=== PATIENT | female | born 1970 | race Caucasian/White ===

== ENCOUNTER → 2018-10-01 | Outpatient (CLI) | payer OTHER ==
--- NOTE | 2018-10-01 15:45 | REPMRS ---
Patient History The patient states she had a clinical breast exam in 09/2018. Family history of breast cancer in maternal aunt, breast cancer at age 44 in sister. No Hormone Replacement Therapy 3D TOMOSYNTHESIS WAS PERFORMED. Digital Woman Screen Mammo: October 01, 2018 - Exam #: [id number] Bilateral CC and MLO view(s) were taken. Technologist: Chiara Maurer, Technologist Prior study comparison: March 03, 2013, digital woman screen mammo performed at [facility]. FINDINGS: The breast tissue is heterogeneously dense. This may lower the sensitivity of mammography. There has been no change in the appearance of the mammogram from the prior studies. There is a moderate amount of residual fibroglandular tissue which is fairly symmetric. There is no interval development of dominant mass, areas of architectural distortion, or clustered microcalcification typical of malignancy. Assessment: BI-RADS/ACR category 1 mammogram. Negative Mammogram. Recommendation Routine screening mammogram in 1 year (for women over age 40). This mammogram was interpreted with the aid of an FDA-approved computer-aided dectection system. THE LIFETIME RISK OF BREAST CANCER IS 20%, THEREFORE SUPPLEMENTAL SCREENING MRI OF THE BREASTS IS RECOMMENDED IN 6 MONTHS. Electronically Signed By: Tejinder Kaur MD 10/01/18 [id number]
== END ==
LOC: M WHC 14:39
PROVIDERS: ATTEND Nurse Practitioner Women's Health
DX: Z12.31 Encounter for screening mammogram for malignant neoplasm of breast (principal); Z85.3 Personal history of malignant neoplasm of breast

== ENCOUNTER → 2018-10-01 | Outpatient (REF) | payer OTHER ==
[2018-10-06 14:10] LABS: HPV HYBRID CAPTURE II Negative (Negative)
== END ==
LOC: M SFHCWAGY 14:43
PROVIDERS: ATTEND Nurse Practitioner Women's Health
DX: Z12.4 Encounter for screening for malignant neoplasm of cervix (principal)
CPT/HCPCS: 87624; G0123

== ENCOUNTER → 2020-05-03 | Outpatient (REF) | payer OTHER ==
[2020-05-03 13:52] LABS: FOLATE 12.5 NG/ML
== END ==
LOC: M LAB REF 12:33
PROVIDERS: ATTEND Registered Nurse
DX: R20.2 Paresthesia of skin (principal)

== ENCOUNTER → 2021-04-02 | Outpatient (CLI) | payer OTHER ==
--- NOTE | 2021-04-02 15:08 | REP ---
INDICATION: PAIN. COMPARISON: None TECHNIQUE: AP and frog-lateral views bilateral FINDINGS: The femoral heads are spherical in shape and symmetric in appearance. There is mild bilateral asymmetric hip joint space narrowing without subchondral sclerosis, subchondral cyst formation, buttressing, or marginal osteophyte formation. There is no acute fracture, dislocation, or subluxation. IMPRESSION: Early degenerative changes. <Electronically signed by Antony Rolon > 04/02/21 [id number]
== END ==
LOC: M WUC 14:48
PROVIDERS: ATTEND Registered Nurse
DX: M25.551 Pain in right hip (principal); M25.552 Pain in left hip

== ENCOUNTER → 2021-04-12 | Outpatient (REF) | payer OTHER | LOC: M LAB REF 17:04 | PROVIDERS: ATTEND Physician Assistant | DX: R43.2 Parageusia (principal) ==

== ENCOUNTER → 2021-05-31 | Outpatient (REF) | payer OTHER ==
[2021-05-31 12:55] LABS: FOLATE 15.7 NG/ML
== END ==
LOC: M LAB REF 11:59
PROVIDERS: ATTEND Registered Nurse
DX: R43.2 Parageusia (principal)

== ENCOUNTER → 2021-06-05 | Outpatient (CLI) | payer OTHER | LOC: M WHC 10:34 | PROVIDERS: ATTEND Nurse Practitioner Women's Health | DX: Z53.29 Procedure and treatment not carried out because of patient's decision for other reasons (principal) ==

== ENCOUNTER → 2021-06-05 | Outpatient (REF) | payer OTHER | LOC: M SFHCWAGY 12:54 | PROVIDERS: ATTEND Nurse Practitioner Women's Health | DX: Z12.4 Encounter for screening for malignant neoplasm of cervix (principal) ==

== ENCOUNTER → 2022-04-24 | Outpatient (CLI) | payer OTHER | LOC: M WUC 15:33 | PROVIDERS: ATTEND Registered Nurse | DX: M25.551 Pain in right hip (principal); M25.552 Pain in left hip ==

== ENCOUNTER 2022-06-06 17:32 | Emergency (ER) | payer OTHER ==
[~2022-06-06] VITALS: Ht 177.8 cm; Wt 102.9 kg
[2022-06-06 17:42] VITALS: BP 123/64
[2022-06-06] MEDS ORDERED: TRAZ-252 (17:42)
[2022-06-06] MEDS ORDERED: BUPR-71 (17:42)
[2022-06-06] MEDS ORDERED: ROPI1TAB3 (17:42)
[2022-06-06 18:10] LABS: BASO % 0.5 % (0.0-1.0); EOS # 0.1 10^3/uL (0.0-0.5); HEMATOCRIT 39.1 % (36.0-47.0); HEMOGLOBIN 12.7 g/dl (12.0-15.5); LYMPH # 2.1 10^3/uL (1.5-5.0); MEAN CORPUSCULAR HEMOGLOBIN 30.5 pg (27.0-33.0); MEAN CORPUSCULAR HGB CONC 32.5 g/dl (32.0-36.5); MEAN CORPUSCULAR VOLUME 93.8 fl (80.0-96.0); MONO # 0.6 10^3/uL (0.0-0.8); MONO % 7.9 % (2.0-8.0); NEUTROPHILS # 4.9 10^3/uL (1.5-8.5); NEUTROPHILS % 63.3 % (36.0-66.0); PLATELET COUNT, AUTOMATED 363 10^3/uL (150-450); RED BLOOD COUNT 4.17 10^6/uL (4.00-5.40); WHITE BLOOD COUNT 7.7 10^3/uL (4.0-10.0)
[2022-06-06 18:43] LABS: BLOOD UREA NITROGEN 9 MG/DL (9-23); CALCIUM LEVEL 9.5 MG/DL (8.5-10.1); CARBON DIOXIDE LEVEL 26 MMOL/L (20-31); CHLORIDE LEVEL 103 MMOL/L (98-107); CK-MB VALUE MASS < 1.0 NG/ML (<3.6); CREATININE FOR GFR 0.84 MG/DL (0.55-1.30); GLOMERULAR FILTRATION RATE > 60.0 (>58); GLUCOSE, FASTING 79 MG/DL (60-100); POTASSIUM SERUM 4.1 MMOL/L (3.5-5.1); SODIUM LEVEL 138 MMOL/L (136-145)
[2022-06-06 18:46] LABS: CPK CREATINE PHOSPHOKINASE 91 U/L (34-145); MB/CK RELATIVE INDEX 1.09 (< OR =4)
== END 2022-06-06 21:57 | disposition left against medical advice (07) ==
LOC: M ED 17:32 → EDBD 17:32 → M ED 21:57
DX: Z53.21 Procedure and treatment not carried out due to patient leaving prior to being seen by health care provider (principal)

== ENCOUNTER → 2022-09-10 | Outpatient (CLI) | payer OTHER ==
[~2022-09-10] MED LIST: BUPR-71; ROPI1TAB3; TRAZ-252
== END ==
LOC: M PLAIMG 06:40
PROVIDERS: ATTEND Orthopaedic Surgery
DX: M70.61 Trochanteric bursitis, right hip (principal); M70.62 Trochanteric bursitis, left hip; M76.02 Gluteal tendinitis, left hip; M76.01 Gluteal tendinitis, right hip

== ENCOUNTER → 2022-10-31 | Outpatient (REF) | payer OTHER | LOC: M SFHCWAGY 18:20 | PROVIDERS: ATTEND Obstetrics & Gynecology | DX: Z12.4 Encounter for screening for malignant neoplasm of cervix (principal) | CPT/HCPCS: 87624; G0123 ==

== ENCOUNTER → 2022-11-11 | Outpatient (CLI) | payer OTHER | LOC: M WHC 15:29 | PROVIDERS: ATTEND Nurse Practitioner Family | DX: N83.209 Unspecified ovarian cyst, unspecified side (principal) ==

== ENCOUNTER 2023-02-25 12:10 | Emergency (ER) | payer OTHER ==
[~2023-02-25] VITALS: Ht 177.8 cm; Wt 100.2 kg
[~2023-02-25 12:10] MED LIST changes: -ROPI1TAB3; +ROPI1TAB73
[2023-02-25] MEDS ORDERED: ESCITALOPRAM (13:07)
[2023-02-25] MEDS ORDERED: PHEN-239 (13:07)
[2023-02-25] MEDS ORDERED: SYNT150T (13:07)
[2023-02-25 16:33] LABS: BASO % 0.4 % (0.0-1.0); EOS # 0.2 10^3/uL (0.0-0.5); EOS % 2.1 % (0.0-3.0); HEMATOCRIT 39.5 % (36.0-47.0); HEMOGLOBIN 12.9 g/dl (12.0-15.5); LYMPH # 1.9 10^3/uL (1.5-5.0); LYMPH % 26.4 % (24.0-44.0); MEAN CORPUSCULAR HEMOGLOBIN 29.9 pg (27.0-33.0); MEAN CORPUSCULAR HGB CONC 32.7 g/dl (32.0-36.5); MEAN CORPUSCULAR VOLUME 91.6 fl (80.0-96.0); MONO # 0.5 10^3/uL (0.0-0.8); MONO % 7.2 % (2.0-8.0); NEUTROPHILS # 4.6 10^3/uL (1.5-8.5); NEUTROPHILS % 63.6 % (36.0-66.0); PLATELET COUNT, AUTOMATED 338 10^3/uL (150-450); RED BLOOD COUNT 4.31 10^6/uL (4.00-5.40); WHITE BLOOD COUNT 7.2 10^3/uL (4.0-10.0)
[2023-02-25 16:49] LABS: ERYTHROCYTE SEDIMENTATION RATE 5 mm/hr (0-30)
[2023-02-25 17:13] LABS: CK-MB VALUE MASS < 1.0 NG/ML (<3.6)
[2023-02-25 17:14] LABS: IRON (FE) 42 UG/DL (50-170); PERCENT SATURATION 15.1 % (13.2-45.0); TOTAL IRON BINDING CAPACITY 278 UG/DL (250-425)
[2023-02-25 17:15] LABS: C REACTIVE PROTEIN QUANTITATIV < 0.40 MG/DL (<1.0)
[2023-02-25 17:16] LABS: ALBUMIN 3.9 G/DL (3.2-5.2); ALKALINE PHOSPHATASE 59 U/L (46-116); ALT/SGPT 20 U/L (7.0-40); AST/SGOT 15 U/L (<34); BILIRUBIN,DIRECT < 0.1 MG/DL (<0.4); BILIRUBIN,TOTAL 0.3 MG/DL (0.3-1.2); BLOOD UREA NITROGEN 10 MG/DL (9-23); CALCIUM LEVEL 9.2 MG/DL (8.5-10.1); CARBON DIOXIDE LEVEL 29 MMOL/L (20-31); CHLORIDE LEVEL 108 MMOL/L (98-107); CREATININE FOR GFR 0.85 MG/DL (0.55-1.30); GLOMERULAR FILTRATION RATE > 60.0 (>51); GLUCOSE, FASTING 91 MG/DL (60-100); INR 1.05; MAGNESIUM LEVEL 1.8 MG/DL (1.8-2.4); PARTIAL THROMBOPLASTIN TIME 28.8 SECONDS (24.8-34.2); POTASSIUM SERUM 4.1 MMOL/L (3.5-5.1); PROTHROMBIN TIME 13.4 SECONDS (12.5-14.5); SODIUM LEVEL 141 MMOL/L (136-145); TOTAL PROTEIN 6.9 G/DL (5.7-8.2)
[2023-02-25 17:19] LABS: D-DIMER QUANT < 0.27 ug/mL (<0.5); FOLATE > 24.00 NG/ML (>5.4); FREE T4 1.24 NG/DL (0.89-1.76); VITAMIN B12 LEVEL 414 PG/ML (211-911)
[2023-02-25 17:20] LABS: CPK CREATINE PHOSPHOKINASE 59 U/L (34-145); MB/CK RELATIVE INDEX 1.69 (< OR =4)
[2023-02-25] MEDS ORDERED: MOME17SP NS (18:00)
[2023-02-25 18:19] VITALS: BP 140/76; TEMP 97.6; O2SAT 98
== END 2023-02-25 18:21 | disposition home or self-care (01) ==
LOC: M ED 12:10
DX: D50.9 Iron deficiency anemia, unspecified (principal); J34.89 Other specified disorders of nose and nasal sinuses; E03.9 Hypothyroidism, unspecified; Z79.899 Other long term (current) drug therapy; Z88.0 Allergy status to penicillin

== ENCOUNTER → 2023-10-27 | Outpatient (CLI) | payer OTHER ==
[~2023-10-27] MED LIST changes: +ESCITALOPRAM; +MOME17SP NS; +PHEN-239; +SYNT150T
[2023-10-27 10:38] LABS: BASO # 0.1 10^3/uL (0.0-0.2); BASO % 0.6 % (0.0-1.0); EOS # 0.1 10^3/uL (0.0-0.5); EOS % 1.4 % (0.0-3.0); HEMATOCRIT 39.5 % (36.0-47.0); HEMOGLOBIN 12.8 g/dl (12.0-15.5); LYMPH # 1.7 10^3/uL (1.5-5.0); LYMPH % 19.2 % (24.0-44.0); MEAN CORPUSCULAR HEMOGLOBIN 30.5 pg (27.0-33.0); MEAN CORPUSCULAR HGB CONC 32.4 g/dl (32.0-36.5); MEAN CORPUSCULAR VOLUME 94.3 fl (80.0-96.0); MONO # 0.7 10^3/uL (0.0-0.8); MONO % 7.6 % (2.0-8.0); NEUTROPHILS # 6.4 10^3/uL (1.5-8.5); NEUTROPHILS % 70.6 % (36.0-66.0); PLATELET COUNT, AUTOMATED 323 10^3/uL (150-450); RED BLOOD COUNT 4.19 10^6/uL (4.00-5.40); WHITE BLOOD COUNT 9.1 10^3/uL (4.0-10.0)
[2023-10-27 11:02] LABS: IRON (FE) 122 UG/DL (50-170)
[2023-10-27 11:03] LABS: ALBUMIN 3.5 G/DL (3.2-5.2); ALKALINE PHOSPHATASE 65 U/L (46-116); ALT/SGPT 26 U/L (7.0-40); AST/SGOT 21 U/L (<34); BILIRUBIN,TOTAL 0.4 MG/DL (0.3-1.2); BLOOD UREA NITROGEN 14 MG/DL (9-23); CALCIUM LEVEL 9.1 MG/DL (8.5-10.1); CARBON DIOXIDE LEVEL 30 MMOL/L (20-31); CHLORIDE LEVEL 104 MMOL/L (98-107); CHOLESTEROL LEVEL 175 MG/DL (<200); CHOLESTEROL RISK RATIO 3.53 (<5); CREATININE FOR GFR 0.79 MG/DL (0.55-1.30); GLOMERULAR FILTRATION RATE > 60.0 (>51); GLUCOSE, FASTING 86 MG/DL (60-100); HDL CHOLESTEROL 49.5 MG/DL (>40); LDL CHOLESTEROL 101.7 MG/DL (<100); NON-HDL-C 125.5 MG/DL; POTASSIUM SERUM 3.9 MMOL/L (3.5-5.1); SODIUM LEVEL 138 MMOL/L (136-145); TOTAL PROTEIN 6.3 G/DL (5.7-8.2); TRIGLYCERIDES LEVEL 119 MG/DL (<150)
[2023-10-27 11:06] LABS: CARCINOEMBRYONIC ANTIGEN < 2.0 NG/ML (<2.5); FERRITIN 14.9 NG/ML (7.3-270.7); THYROID STIMULATING HORMONE 6.924 uIU/ML (0.55-4.78)
[2023-10-27 11:07] LABS: FREE T4 0.98 NG/DL (0.89-1.76)
== END ==
LOC: M WUC 08:18
PROVIDERS: ATTEND Registered Nurse
DX: M54.50 Low back pain, unspecified (principal); D50.9 Iron deficiency anemia, unspecified; Z79.899 Other long term (current) drug therapy; Z13.220 Encounter for screening for lipoid disorders

== ENCOUNTER → 2024-05-05 | Outpatient (REF) | payer OTHER ==
[~2024-05-05] MED LIST changes: +BUPR150T12 PO; +FINA1TAB4 PO; +LEXA1TAB2 PO; -ROPI1TAB73; +ROPI1TAB73 PO; +SEMA0.257 SQ; +SYNT175T2 PO; -TRAZ-252; +TRAZ-252 PO
== END ==
LOC: M SFHCWAGY 15:07
PROVIDERS: ATTEND Obstetrics & Gynecology
DX: N93.9 Abnormal uterine and vaginal bleeding, unspecified (principal)

== ENCOUNTER → 2024-05-16 | Outpatient (CLI) | payer OTHER ==
[~2024-05-16] MED LIST changes: +COLA100C5 PO; +IBUP80TA PO; +PERCOCET PO
== END ==
LOC: M EKG 13:00
PROVIDERS: ATTEND Anesthesiology
DX: Z01.818 Encounter for other preprocedural examination (principal)

== ENCOUNTER 2024-05-20 07:02 | Observation (INO) | payer OTHER ==
[2024-05-20] VITALS (8 sets, daily range): BP systolic 95–113; BP diastolic 52–64; TEMP 95.4–99.2; O2SAT 90–100
[~2024-05-20] VITALS: Ht 177.8 cm; Wt 103.9 kg
[~2024-05-20 07:02] MED LIST changes: -COLA100C5 PO; -IBUP80TA PO; -PERCOCET PO
[2024-05-20 08:04] LABS: HEMATOCRIT 44.1 % (36.0-47.0); HEMOGLOBIN 14.4 g/dl (12.0-15.5); MEAN CORPUSCULAR HEMOGLOBIN 30.8 pg (27.0-33.0); MEAN CORPUSCULAR HGB CONC 32.7 g/dl (32.0-36.5); MEAN CORPUSCULAR VOLUME 94.2 fl (80.0-96.0); PLATELET COUNT, AUTOMATED 368 10^3/uL (150-450); RED BLOOD COUNT 4.68 10^6/uL (4.00-5.40); WHITE BLOOD COUNT 10.1 10^3/uL (4.0-10.0)
[2024-05-20] MEDS: ceFAZolin SOD 2 GM in IV 1 EA IV ONE (08:05)
[2024-05-20] MEDS: METHYLENE BLUE 0.5% (5MG/ML) 10 ML AMP (PROVAYBLUE) As Ordered ONE (08:38)
[2024-05-20] MEDS ORDERED: ROCURONIUM BROMIDE 50MG/5ML VIAL As Ordered ONE (08:46)
[2024-05-20] MEDS ORDERED: METOCLOPRAMIDE INJ 10MG/2ML VIAL As Ordered ONE (08:46)
[2024-05-20] MEDS ORDERED: ONDANSETRON 4MG 2ML VIAL As Ordered ONE (08:46)
[2024-05-20] MEDS ORDERED: propofoL 200 MG/20 ML VIAL As Ordered ONE (08:46)
[2024-05-20] MEDS ORDERED: KETOROLAC 60MG 2ML VIAL As Ordered ONE (08:46)
[2024-05-20] MEDS ORDERED: fentaNYL 250 MCG/5 ML INJECTION As Ordered ONE (08:46)
[2024-05-20] MEDS ORDERED: MIDAZOLAM INJ 2MG/2ML VIAL As Ordered ONE (08:46)
[2024-05-20] MEDS ORDERED: SUGAMMADEX SODIUM 500 MG/5 ML VIAL (BRIDION) As Ordered ONE (08:46)
[2024-05-20] MEDS ORDERED: LIDOCAINE 2% 100MG/5ML SDV (FOR ANES.) As Ordered ONE (08:46)
[2024-05-20] MEDS ORDERED: ACETAMINOPHEN 1000MG/100ML IV BAG As Ordered ONE (08:46)
[2024-05-20] MEDS ORDERED: HYDROmorphone HCL 2MG/ML 1ML VIAL As Ordered ONE (08:46)
[2024-05-20] MEDS ORDERED: dexmedeTOMIDine (4MCG/ML)200MCG/50ML BTL (PRECEDEX) As Ordered ONE (09:10)
[2024-05-20] MEDS ORDERED: GLYCOPYRROLATE INJ 0.2 MG/ML 2 ML VIAL As Ordered ONE (10:12)
[2024-05-20] MEDS ORDERED: ePHEDrine SULFATE 25 MG/5 ML(5MG/ML) SYRINGE As Ordered ONE (10:13)
[2024-05-20] MEDS ORDERED: DESFLURANE 240 ML INHALANT As Ordered ONE (10:18)
[2024-05-20] MEDS ORDERED: ONDANSETRON 4MG 2ML VIAL IV PRN ×2 (10:20→10:25)
[2024-05-20] MEDS ORDERED: oxyCODONE 5MG TAB PO PRN (10:20)
[2024-05-20] MEDS ORDERED: MORPHINE 4 MG/ML 1ML VIAL IV PRN (10:30)
[2024-05-20] MEDS ORDERED: IBUP80TA PO (10:32)
[2024-05-20] MEDS ORDERED: COLA100C5 PO (10:32)
[2024-05-20] MEDS ORDERED: PERCOCET PO (10:32)
[2024-05-20] MEDS: fentaNYL 100 MCG/2 ML INJECTION IV PRN (11:07)
[2024-05-20] MEDS: HYDROMORPHONE HCL 0.5 MG/ 0.5 ML SYRINGE IV PRN (11:18)
[2024-05-20] MEDS: LR 1,000 ML IV SCH (12:53)
[2024-05-20] MEDS: KETOROLAC 30 MG/ML 1ML VIAL IV SCH (17:29)
[2024-05-20] MEDS: PERCOCET 5MG/325MG TAB PO PRN (19:15)
[2024-05-20] MEDS: SIMETHICONE 80MG CHEW TAB PO PRN (21:47)
[2024-05-20] MEDS: DOCUSATE SODIUM 100MG CAPSULE PO SCH (21:47)
[2024-05-21 02:00] VITALS: BP 116/66; TEMP 98.9; O2SAT 98
[2024-05-21] MEDS: PERCOCET 5MG/325MG TAB PO PRN (02:00)
[2024-05-21 05:58] VITALS: BP 117/68; TEMP 98.9; O2SAT 98
[2024-05-21 09:44] VITALS: BP 107/57; TEMP 97.7; O2SAT 95
[2024-05-21] MEDS ORDERED: IBUPROFEN 800 MG TAB PO SCH (18:00)
== END 2024-05-21 11:44 | disposition home or self-care (01) ==
LOC: M SDC 07:02 → M RR INP 10:26 → M OBS 11:55
PROVIDERS: ADMIT Obstetrics & Gynecology; ATTEND Obstetrics & Gynecology
DX: N72 Inflammatory disease of cervix uteri (principal); N88.8 Other specified noninflammatory disorders of cervix uteri; D27.1 Benign neoplasm of left ovary; L72.0 Epidermal cyst; N93.9 Abnormal uterine and vaginal bleeding, unspecified; R10.2 Pelvic and perineal pain; Z88.0 Allergy status to penicillin; Z79.899 Other long term (current) drug therapy
CPT/HCPCS: 36415; 58571; 58662; 81025; 85027; 86850; 86900; 86901; 88305; 88307; 96374; 96376; J0131; J0665; J0690; J1100; J1171; J1596; J1885; J2250; J2405; J2765; J3010; Q9968; S2900

== ENCOUNTER 2024-05-23 03:45 | Emergency (ER) | payer OTHER ==
[~2024-05-23] VITALS: Ht 177.8 cm; Wt 102.3 kg
[~2024-05-23 03:45] MED LIST changes: +COLA100C5 PO; +IBUP80TA PO; +PERCOCET PO
[2024-05-23 06:56] LABS: BASO % 0.4 % (0.0-1.0); EOS # 0.3 10^3/uL (0.0-0.5); EOS % 2.8 % (0.0-3.0); HEMATOCRIT 33.3 % (36.0-47.0); HEMOGLOBIN 11.1 g/dl (12.0-15.5); LYMPH # 1.3 10^3/uL (1.5-5.0); LYMPH % 14.2 % (24.0-44.0); MEAN CORPUSCULAR HEMOGLOBIN 31.8 pg (27.0-33.0); MEAN CORPUSCULAR HGB CONC 33.3 g/dl (32.0-36.5); MEAN CORPUSCULAR VOLUME 95.4 fl (80.0-96.0); MONO # 0.8 10^3/uL (0.0-0.8); MONO % 8.6 % (2.0-8.0); NEUTROPHILS # 6.8 10^3/uL (1.5-8.5); PLATELET COUNT, AUTOMATED 286 10^3/uL (150-450); RED BLOOD COUNT 3.49 10^6/uL (4.00-5.40); WHITE BLOOD COUNT 9.3 10^3/uL (4.0-10.0)
[2024-05-23 07:02] LABS: INR 0.91; PARTIAL THROMBOPLASTIN TIME 24.7 SECONDS (24.8-34.2); PROTHROMBIN TIME 12.6 SECONDS (12.5-14.5)
[2024-05-23 07:25] LABS: ETHYL ALCOHOL (ETHANOL) < 0.003 % (0.000-0.010)
[2024-05-23 07:26] LABS: BLOOD UREA NITROGEN 12 MG/DL (9-23); CALCIUM LEVEL 8.6 MG/DL (8.5-10.1); CARBON DIOXIDE LEVEL 29 MMOL/L (20-31); CHLORIDE LEVEL 106 MMOL/L (98-107); CK-MB VALUE MASS < 1.0 NG/ML (<3.6); CPK CREATINE PHOSPHOKINASE 32 U/L (34-145); GLOMERULAR FILTRATION RATE > 60.0 (>51); GLUCOSE, FASTING 119 MG/DL (60-100); MB/CK RELATIVE INDEX 3.12 (< OR =4); POTASSIUM SERUM 4.4 MMOL/L (3.5-5.1); SODIUM LEVEL 140 MMOL/L (136-145)
[2024-05-23 07:29] LABS: THYROID STIMULATING HORMONE 2.809 uIU/ML (0.55-4.78)
[2024-05-23] MEDS: NS 500 ML IV ONE (07:35)
[2024-05-23] MEDS ORDERED: ISOVUE-370 76% 100ML VIAL As Ordered ONE (07:44)
[2024-05-23 08:00] LABS: AMPHETAMINES LEVEL URINE NEGATIVE (NEGATIVE); BARBITURATES URINE NEGATIVE (NEGATIVE); BENZODIAZEPINES URINE NEGATIVE (NEGATIVE); COCAINE METABOLITE URINE NEGATIVE (NEGATIVE); METHADONE URINE NEGATIVE (NEGATIVE); PHENCYCLIDINE URINE NEGATIVE (NEGATIVE)
[2024-05-23 08:02] LABS: CANNABINOIDS URINE POSITIVE (NEGATIVE); OPIATES URINE POSITIVE (NEGATIVE)
[2024-05-23 08:28] LABS: CK-MB VALUE MASS < 1.0 NG/ML (<3.6); CPK CREATINE PHOSPHOKINASE 31 U/L (34-145); MB/CK RELATIVE INDEX 3.22 (< OR =4)
[2024-05-23 09:00] VITALS: BP 108/61; O2SAT 97
[2024-05-23 09:13] VITALS: TEMP 97.6
== END 2024-05-23 09:15 | disposition home or self-care (01) ==
LOC: M ED 03:45
DX: R53.1 Weakness (principal); F12.10 Cannabis abuse, uncomplicated; N83.202 Unspecified ovarian cyst, left side; Z79.899 Other long term (current) drug therapy; Z88.0 Allergy status to penicillin
CPT/HCPCS: 71275; 74177; 80048; 80307; 82077; 82550; 82553; 84443; 84484; 85025; 85610; 85730; 93005; 93041; 93971; 94760; 96360; 99285; Q9967

== ENCOUNTER → 2025-01-02 | Outpatient (CLI) | payer OTHER ==
[~2025-01-02] MED LIST changes: +CEPH500C PO; -PHEN-239; +PHEN37.511; +PHEN37.511 PO
== END ==
LOC: M WUC 10:07
PROVIDERS: ATTEND Physician Assistant Medical
DX: M54.12 Radiculopathy, cervical region (principal)

== ENCOUNTER 2025-01-25 07:12 | Day surgery (SDC) | payer OTHER ==
[~2025-01-25] VITALS: Ht 177.8 cm; Wt 102.4 kg
[2025-01-25 09:15] VITALS: TEMP 97.4
[2025-01-25 09:35] VITALS: BP 113/55; O2SAT 100
== END 2025-01-25 09:42 | disposition home or self-care (01) ==
LOC: M OPP 07:12
PROVIDERS: ATTEND Surgery
DX: Z12.11 Encounter for screening for malignant neoplasm of colon (principal); Z88.0 Allergy status to penicillin; Z79.899 Other long term (current) drug therapy

== ENCOUNTER → 2025-04-05 | Outpatient (REF) | payer OTHER ==
[2025-04-07 20:37] LABS: LYME TOTAL ANTIBODY CIA <= 0.90 Index (<=0.90)
[2025-04-11 08:42] LABS: BORRELIA SPECIES DNA NOT DETECTED
== END ==
LOC: M LAB REF 12:32
PROVIDERS: ATTEND Physician Assistant Medical
DX: G50.1 Atypical facial pain (principal); R20.2 Paresthesia of skin

== ENCOUNTER → 2025-04-19 | Outpatient (CLI) | payer OTHER | LOC: M PLAIMG 15:14 | PROVIDERS: ATTEND Physician Assistant Medical | DX: G50.1 Atypical facial pain (principal) ==